=== PATIENT | male | born 1985 | race Caucasian/White ===

== ENCOUNTER 2018-01-13 21:44 | Inpatient (IN) ==
[2018-01-13] MEDS ORDERED: Sod Chloride 0.9% Inj 1,000 ML IV.SIG ONE (23:36)
[2018-01-13] MEDS ORDERED: Piperacil/Tazo 3.375 GM Premix 50 ML IV.SIG ONE (23:36)
[2018-01-13] MEDS ORDERED: Vancomycin Inj 1 GM/200 ML PIGGYBACK IV.SIG ONE (23:36)
[2018-01-14 00:12] LABS: Baso # (Auto) 0.1 th/mm3 (0.0-0.2); Baso % (Auto) 0.7 % (0.0-2.0); Eos # (Auto) 0.1 th/mm3 (0.0-0.4); Eos % (Auto) 0.5 % (0.0-4.0); Hematocrit 39.5 % (39.0-51.0); Hemoglobin 13.9 gm/dL (13.0-17.0); Lymph % (Auto) 20.3 % (9.0-44.0); Mean Corpuscular HGB Conc 35.3 % (32.0-36.0); Mean Corpuscular Hemoglobin 31.1 pg (27.0-34.0); Mean Corpuscular Volume 88.3 fL (80.0-100.0); Mean Platelet Volume 7.4 fL (7.0-11.0); Mono % (Auto) 6.8 % (0.0-8.0); Neut # (Auto) 10.6 th/mm3 (1.8-7.7); Neut % (Auto) 71.7 % (16.0-70.0); Platelet Count 234 th/mm3 (150-450); Red Blood Count 4.47 mil/mm3 (4.50-5.90); Red Cell Distribution Width 13.6 % (11.6-17.2); White Blood Count 14.8 th/mm3 (4.0-11.0)
--- NOTE | 2018-01-14 00:13 | XR ---
EXAM DATE: 01/14/2018 12:08 AM EDT AGE/SEX: 32 years / Male INDICATIONS: Fever. CLINICAL DATA: This is the patient's initial encounter. Patient reports that signs and symptoms have been present for 2 days and indicates a pain score of 0/10. MEDICAL/SURGICAL HISTORY: None. None. COMPARISON: No prior exams available for comparison. FINDINGS: A single AP view of the chest demonstrates the lungs to be symmetrically aerated without evidence of mass, infiltrate or effusion. The cardiomediastinal contours are unremarkable. Osseous structures a re intact. CONCLUSION: Negative examination. Electronically signed by: Guy Elizalde MD 01/14/2018 12:11 AM EDT
[2018-01-14 00:24] LABS: Alanine Aminotransferase 51 U/L (12-78); Albumin 3.6 g/dL (3.4-5.0); Anion Gap 7 meq/L (5-15); Aspartate Aminotransferase 36 U/L (15-37); Blood Urea Nitrogen 14 mg/dL (7-18); Calcium 8.6 mg/dL (8.5-10.1); Carbon Dioxide 25.8 meq/L (21.0-32.0); Chloride 103 meq/L (98-107); Glomerular Filtration Rate 76 mL/min (>89); Glucose,Random 87 mg/dL (74-106); Lipase 63 U/L (73-393); Magnesium 2.1 mg/dL (1.5-2.5); Potassium 4.1 meq/L (3.5-5.1); Sodium 136 meq/L (136-145)
[2018-01-14 00:27] LABS: Alkaline Phosphatase 74 U/L (45-117); Total Protein 7.6 g/dL (6.4-8.2)
--- NOTE | 2018-01-14 00:36 | ED ---
HPI General Chief complaint: Skin/Abscess/Foreign Body Stated complaint: Infection/packing Time Seen by Provider: 01/13/18 23:17 Source: patient Limitations: no limitations History of Present Illness HPI narrative: The patient is a 32 year old male who presents to the [facility] emergency department with a history of reportedly having an insect bite on his right posterior calf that he first noticed 6 days ago. He reports that he began to get red and swollen, painful, and warm, therefore he came to the emergency department for evaluation and treatment. The patient was diagnosed with cellulitis. The patient was treated with Bactrim and Keflex. The patient reports that after starting the antibiotic he then began to have an area that seemed to be coming to ahead. He came to the emergency department last night and had incision and drainage done with packing provided. He was continued on antibiotic as an outpatient, however he was given a dose of vancomycin IV while in the emergency department. The patient reports that since then the area of swelling has greatly increased. He reports that he has redness going up the back of his leg to the posterior thigh. He denies having any groin pain or swelling. He denies having any known fevers or chills. The patient reports having a prior history of cellulitis, however he denies any history of MRSA. He denies any recent IV drug use. He reports that he last used IV drugs years ago. He does report having a history of hepatitis C that he has not been treated for. On review of systems otherwise, the patient denies having any cough, congestion, neck pain, chest pain, shortness of breath, abdominal pain, vomiting, diarrhea, urinary symptoms, or neurologic symptoms. Related Data Previous Rx's Medication Instructions Recorded cephalexin [Keflex] 500 mg PO Q6H 10 Days #40 cap 01/11/18 ibuprofen 800 mg PO TID PRN #21 tab 01/11/18 mupirocin 1 applic TOPICAL BID #15 g 01/11/18 sulfamethoxazole-trimethoprim 1 tab PO Q12H #20 tab 01/11/18 [Bactrim DS] Allergies Allergy/AdvReac Type Severity Reaction Status Date / Time No Known Allergies Allergy Unverified 01/11/18 18:10 Review of Systems ROS: all other systems reviewed are negative (Except for that which is mentioned in the HPI.) Constitutional Denies fever(s) Eyes Denies change in vision ENT Denies headache(s) and Denies nasal congestion Cardiovascular Denies chest pain Respiratory Denies dyspnea Gastrointestinal Denies abdominal pain Genitourinary Denies difficulty urinating Musculoskeletal Denies myalgias Integumentary/Breasts Reports rash Neurologic Denies headache(s) Psychiatric Denies depression Endocrine Denies polyuria Hematologic/Lymphatic Denies easy bruising [facility] Medical History Medical History Hepatitis C (Acute) Patient denies medical problems (Acute) Surgical History Surgical History No history of previous surgery (Acute) Social History Social History Substance History: No History of Abuse Second Hand Smoke Exposure: Yes Smoking Status: Never smoker Tobacco Type: Cigarettes Packs Per Day: 1 Cigarettes Per Day: 20.0 How Often Do You Have a Drink Containing Alcohol: Monthly or less Recent Travel in [facility] within the Last 8 Weeks: No Recent Out of Country Travel within the Last 8 Weeks: No Immunization History Tetanus Immunization: Unsure Exam Const General: cooperative, no acute distress and well developed Nutritional Appearance: well nourished Orientation: alert, awake and oriented x3 HENMT Head: normocephalic and atraumatic Nose: no nasal discharge and no epistaxis Mouth: moist mucous membranes Eyes Sclera: normal sclerae Pupils: PERRL Neck Neck: no meningeal signs, trachea midline and no JVD Resp Effort & Inspection: no use of accessory muscles Auscultation: clear to auscultation bilaterally Cardio Rate: regular rate Rhythm: regular rhythm Heart Sounds: no murmurs GI Inspection: non-distended Palpation: soft, no hepatosplenomegaly and nontender Auscultation: normal bowel sounds Back/Spine/Pelvis Back: no CVA tenderness Cervical Spine: No cervical spinal tenderness Thoracic/Lumbar Spine: No thoracic spinal tenderness and No lumbar spinal tenderness Skin General: dry skin (warm) Neuro General: alert, awake and oriented x3 Cranial Nerves: other (No facial asymmetry) Speech: speech normal Motor: no movement abnormalities noted Extrem General: normal to inspection (Except in the area of interest, the right lower extremity.), no clubbing, no cyanosis and edema Laterality: on the right Right lower extremity: abnormal to inspection (The patient on examination of the right lower extremity is noted to have calf redness with a central area of abscess that is been lanced and packed. The patient's area of redness covers the entire lower right leg and part of the ankle as well as has spread to the upper distal aspect of the posterior right thigh. No inguinal lymphadenopathy associated with this.) Psych Mood: congruent mood Affect: normal affect Judgment: judgment good Course Consultations Consultation #1: The patient's case including history, pertinent physical examination findings, and laboratory studies were discussed with Dr. Taveras. It was agreed that the patient would be admitted to the hospitalist service. Initial Documented Vital Signs Temperature 98.7 F 01/13/18 21:49 Pulse Rate 93 H 01/13/18 21:49 Respiratory Rate 20 01/13/18 21:49 Blood Pressure 138/65 01/13/18 21:49 Pulse Oximetry 100 01/13/18 21:49 Last Documented Vital Signs Temperature 98.7 F 01/13/18 21:49 Pulse Rate 93 H 01/13/18 21:49 Respiratory Rate 20 01/13/18 21:49 Blood Pressure 138/65 01/13/18 21:49 Pulse Oximetry 98 01/13/18 21:51 Medical Decision Making MDM Narrative Medical decision making narrative: During the course of the patient's emergency department visit, the patient's history, examination, and differential diagnosis were reviewed with the patient. The patient was placed on a watch commander with oximetry and frequent blood pressure monitoring. The patient had IV access obtained and blood work sent for analysis. A diagnostic evaluation was started regarding this patient's cellulitis and abscess. Blood cultures 2 were ordered, lactic acid was sent for analysis. The patient was initially provided normal saline 1 L IV fluid bolus, Zosyn 3.375 g IV, vancomycin 1 g IV. Laboratory studies are remarkable for a white count of 14.8, platelets 234, neutrophils 71.7, hemoglobin 13.9, sedimentation rate is elevated at 42, chemistry is remarkable for a total bilirubin of 1.5, lipase 63, magnesium 2.1, lactic acid is normal at 0.6, C-reactive protein is elevated at 12.2. Chest x- ray shows no acute abnormality. The patient will be admitted to the hospital for failure of outpatient management of cellulitis with abscess. The patient's results were discussed with the patient, including the plan of care. I explained that further testing and/ or monitoring is indicated based on the patient's history, examination, and/ or laboratory findings. Therefore, I recommended admission for additional evaluation. The patient expressed understanding and was agreeable with this plan. The patient was admitted to the hospital in guarded condition and sent to a bed under the care of [facility] service. Differential Diagnosis Differential Diagnosis: Failure of outpatient management of cellulitis with abscess, versus bacteremia with sepsis Medical Records Medical records reviewed: Yes I reviewed the patient's medical records. Lab Data Lab results reviewed: Yes I reviewed the patient's lab results. Result diagrams: 01/14/18 00:00 01/14/18 00:00 Lab Results 01/14/18 01/14/18 01/14/18 Range/Units 00:00 00:00 00:00 WBC 14.8 H (4.0-11.0) th/mm3 RBC 4.47 L (4.50-5.90) mil/mm3 Hgb 13.9 (13.0-17.0) gm/dL Hct 39.5 (39.0-51.0) % MCV 88.3 (80.0-100.0) fL MCH 31.1 (27.0-34.0) pg MCHC 35.3 (32.0-36.0) % RDW 13.6 (11.6-17.2) % Plt Count 234 (150-450) th/mm3 MPV 7.4 (7.0-11.0) fL Neut % (Auto) 71.7 H (16.0-70.0) % Lymph % (Auto) 20.3 (9.0-44.0) % [place] % (Auto) 6.8 (0.0-8.0) % Eos % (Auto) 0.5 (0.0-4.0) % Baso % (Auto) 0.7 (0.0-2.0) % Neut # (Auto) 10.6 H (1.8-7.7) th/mm3 Lymph # (Auto) 3.0 (1.0-4.8) th/mm3 [place] # (Auto) 1.0 H (0.0-0.9) th/mm3 Eos # (Auto) 0.1 (0.0-0.4) th/mm3 Baso # (Auto) 0.1 (0.0-0.2) th/mm3 WBC Differential . Differential Comment Auto diff final ESR (0-15) mm/hr Sodium 136 (136-145) meq/L Potassium 4.1 (3.5-5.1) meq/L Chloride 103 (98-107) meq/L Carbon Dioxide 25.8 (21.0-32.0) meq/L Anion Gap 7 (5-15) meq/L BUN 14 (7-18) mg/dL Creatinine 1.11 (0.60-1.30) mg/dL Estimated GFR 76 L (>89) mL/min Random Glucose 87 (74-106) mg/dL Lactic Acid 0.6 (0.4-2.0) mmol/L Calcium 8.6 (8.5-10.1) mg/dL Magnesium 2.1 (1.5-2.5) mg/dL Total Bilirubin 1.5 H (0.2-1.0) mg/dL AST 36 (15-37) U/L ALT 51 (12-78) U/L Alkaline Phosphatase 74 (45-117) U/L C-Reactive Protein 12.20 H (0.00-0.30) mg/dL Total Protein 7.6 (6.4-8.2) g/dL Albumin 3.6 (3.4-5.0) g/dL Lipase 63 L (73-393) U/L 01/14/18 Range/Units 00:00 WBC (4.0-11.0) th/mm3 RBC (4.50-5.90) mil/mm3 Hgb (13.0-17.0) gm/dL Hct (39.0-51.0) % MCV (80.0-100.0) fL MCH (27.0-34.0) pg MCHC (32.0-36.0) % RDW (11.6-17.2) % Plt Count (150-450) th/mm3 MPV (7.0-11.0) fL Neut % (Auto) (16.0-70.0) % Lymph % (Auto) (9.0-44.0) % [place] % (Auto) (0.0-8.0) % Eos % (Auto) (0.0-4.0) % Baso % (Auto) (0.0-2.0) % Neut # (Auto) (1.8-7.7) th/mm3 Lymph # (Auto) (1.0-4.8) th/mm3 [place] # (Auto) (0.0-0.9) th/mm3 Eos # (Auto) (0.0-0.4) th/mm3 Baso # (Auto) (0.0-0.2) th/mm3 WBC Differential Differential Comment ESR 42 H (0-15) mm/hr Sodium (136-145) meq/L Potassium (3.5-5.1) meq/L Chloride (98-107) meq/L Carbon Dioxide (21.0-32.0) meq/L Anion Gap (5-15) meq/L BUN (7-18) mg/dL Creatinine (0.60-1.30) mg/dL Estimated GFR (>89) mL/min Random Glucose (74-106) mg/dL Lactic Acid (0.4-2.0) mmol/L Calcium (8.5-10.1) mg/dL Magnesium (1.5-2.5) mg/dL Total Bilirubin (0.2-1.0) mg/dL AST (15-37) U/L ALT (12-78) U/L Alkaline Phosphatase (45-117) U/L C-Reactive Protein (0.00-0.30) mg/dL Total Protein (6.4-8.2) g/dL Albumin (3.4-5.0) g/dL Lipase (73-393) U/L Imaging Data Radiologist's impression: Chest X-Ray 01/13/18 23:36 CONCLUSION: Negative examination. ECG Data Attestation: I personally reviewed and interpreted this ECG as follows: Interpretation: An EKG was done on arrival that shows a sinus rhythm heart QRS duration is 90 ms, QTC [address] segment elevation. T waves are inverted in V1. Discharge Plan Discharge Disposition Patient Disposition: 30 Still Patient Discharge Details Diagnosis: Cellulitis, Failure of outpatient treatment, Abscess, SIRS (systemic inflammatory response syndrome) Physicians Team ED Provider: Isabella Jackson Primary Care Provider: Primary Care Brittany Larson Attending Provider: Francia Taveras Status ED Status: Admitted Patient
[2018-01-14] MEDS ORDERED: Vancomycin Inj 1,000 MG in Sodium Chlor 0.9% Inj 250 ML IV.SIG ONE (01:00)
[2018-01-14] MEDS ORDERED: Bisacodyl 10 MG Supp RECTAL PRN (03:06)
[2018-01-14] MEDS ORDERED: Acetaminophen 325 MG Tablet PO PRN (03:06)
[2018-01-14] MEDS ORDERED: Vancomycin Consult Pharmacy 1 EACH OTHER SCH (04:00)
[2018-01-14] MEDS: Sod Chloride 0.9% Inj 1,000 ML IV.CONT SCH ×3 (04:22→22:10)
[2018-01-14] MEDS ORDERED: Vancomycin Inj 750 MG in Sodium Chlor 0.9% Inj 250 ML IV.SIG ONE (05:00)
[2018-01-14] MEDS ORDERED: Piperacil/Tazo 3.375 GM Premix 50 ML IV.SIG SCH (07:00)
[2018-01-14] MEDS: Senna/Docusate Sodium 8.6/50 MG Tablet PO SCH ×2 (08:20→20:12)
--- NOTE | 2018-01-14 13:03 | P.HP ---
[facility] Physician: No Primary Care Physician Chief Complaint: Increasing redness and swelling of the right lower extremity posterior calf History of Present Illness: Patient is a 32-year-old male with no significant past medical history who presented to the ER come early this morning with increasing redness and swelling of the right lower extremity posterior cough. About 1 week prior to admission patient thinks that he was probably bitten by an insect on the right posterior calf. He states that subsequently the next day developed a bump associated with severe itching this gradually increased in size and erythema. He finally came to the emergency room on January 12Friday and he was discharged on p.o. antibiotics of Bactrim and cephalexin, ibuprofen and mupirocin ointment.. Patient noted no improvement. Came back to ER the next day because of increasing redness and this time, I and D was done by the ER physician - drained some pus and a drain placed. On review of records unfortunately there was no specimen sent for Gram stain or culture on computer. He was given a one-time dose of IV vancomycin. Patient was instructed to continue taking the Bactrim. All throughout course patient denies any fever or chills. Last evening with rapidly increasing redness and swelling patient getting worried that prompted patient to come here to the ER and was admitted for further evaluation and management. Patient denies any previous history of MRSA or wound infection. states history of reactive hypoglycemia- when he gets to much exercise Inpatient Certification: I certify that the inpatient services were ordered in accordance with Medicare regulations governing the order. This includes certification that hospital inpatient services are reasonable and necessary and in the case of services not specified as inpatient-only under 42 CFR 419.22(n), that they are appropriately provided as inpatient services in accordance to with the 2-midnight benchmark under 43 CFR 412.3(e) Estimated Total Length of Stay (Days): 3 Plans for Post Hospital Care: Home Review of Systems All other systems reviewed negative except as stated in HPI PMFSH - History History Provided By: Patient - Medical History Medical History: Medical History (Last Reviewed 01/14/18 @ 13:13 by Lianne Lorenz RN) Hepatitis C Patient denies medical problems - Surgical History Surgical History: Surgical History (Last Reviewed 01/14/18 @ 13:13 by Lianne Lorenz RN) No history of previous surgery - Tobacco History Second Hand Smoke Exposure: Yes Smoking Status: Current every day smoker Tobacco Type: Cigarettes Packs Per Day: 1 Cigarettes Per Day: 20.0 - Alcohol History How Often Do You Have a Drink Containing Alcohol: Monthly or less - Substance Use History Substance History: Active Abuse (occasionally uses marijuana, denies IV drug use ) - Travel History Recent Travel in the [place] Within the Last 8 Weeks: No Recent Travel Out of the Country Within the Last 8 Weeks: No - Immunization History Tetanus Immunization: Unsure Medications and Allergies Active Medications: Active Medications Acetaminophen (Tylenol) 650 mg PO Q4H PRN PRN Reason: Temp > 100.4 Al Hydroxide/Mg Hydroxide (Milk Of Magnesia Liq) 30 ml PO Q12H PRN PRN Reason: Mild Constipation Bisacodyl (Dulcolax Supp) 10 mg RECTAL DAILY PRN PRN Reason: SEVERE CONSITIPATION Sodium Chloride (Ns Inj) 1,000 mls @ 125 mls/hr IV.CONT .Q8H [facility] Last Admin: 01/14/18 04:22 Dose: 125 mls/hr Pharmacy Profile Note (Vancomycin Consult Pharmacy) 0 mls @ 0 mls/hr OTHER UNSCH [facility] Piperacillin/Tazobactam/Dextrose (Zosyn 3.375 Gm Premix) 50 mls @ 100 mls/hr IV.SIG Q6H [facility] Last Infusion: 01/14/18 08:50 Dose: Infused Vancomycin HCl 1,500 mg/ (Sodium Chloride) 515 mls @ 250 mls/hr IV.SIG Q12H [facility] Lactulose (Lactulose Liq) 30 ml PO DAILY PRN PRN Reason: SEVERE CONSITIPATION Miscellaneous Information ([facility] Ordered Lab Info) 0 each OTHER ONCE ONE Stop: 01/15/18 19:46 Ondansetron HCl (Zofran Inj) 4 mg IV.PUSH Q6H PRN PRN Reason: NAUSEA OR VOMITING Senna/Docusate Sodium (Ifrah-Colace) 1 tab PO BID [facility] Last Admin: 01/14/18 08:20 Dose: Not Given Sennosides (Senokot) 17.2 mg PO Q12H PRN PRN Reason: Moderate Constipation Temazepam (Restoril) 15 mg PO HS PRN PRN Reason: INSOMNIA Allergies Allergy/AdvReac Type Severity Reaction Status Date / Time No Known Allergies Allergy Verified 01/14/18 13:13 Exam Vital signs: Vital Signs 01/13/18 21:49 01/13/18 21:51 01/13/18 23:36 Temperature 98.7 F Pulse Rate 93 H Respiratory Rate 20 Blood Pressure 138/65 Pulse Oximetry 100 98 100 01/14/18 01:51 01/14/18 03:06 01/14/18 08:30 Temperature Pulse Rate 74 74 81 Respiratory Rate 16 14 Blood Pressure 107/61 105/57 L Pulse Oximetry 97 Intake & Output 01/13/18 01/14/18 01/14/18 18:59 06:59 18:59 Intake Total 50 / 50 Balance 50 / 50 Weight 97.522 kg Intake: IV 50 / 50 Zosyn 3.375 GM Premix 50 ML @ 50 / 50 100 mls/hr IV.SIG Q6H [facility] Rx#: [id number] Narrative: Patient is awake alert oriented 3 not in any form of distress Skin with multiple tattoos Anicteric sclerae, pink palpebral conjunctivae Moist oral mucosa Neck supple no rigidity Chest lungs clear breath sounds no rales no wheezes Regular rhythm no murmur Abdomen flabby soft nontender with good bowel sounds Extremities. Right lower extremity with extensive swelling and erythema of the posterior cuff up to the popliteal area. There is a open wound that was drained from by ER from yesterday with drain in place. With surrounding induration and tenderness on palpation marked erythema now draining some light yellowish fluid non- foul Good peripheral pulses Motor moves all extremities equally cranial nerves grossly intact grossly no sensory deficit gait steady Results - Labs CBC & Chem 7: 01/14/18 00:00 01/14/18 00:00 Labs: Laboratory Results - last 24 hr 01/14/18 01/14/18 01/14/18 00:00 00:00 00:00 WBC 14.8 H RBC 4.47 L Hgb 13.9 Hct 39.5 MCV 88.3 MCH 31.1 MCHC 35.3 RDW 13.6 Plt Count 234 MPV 7.4 Neut % (Auto) 71.7 H Lymph % (Auto) 20.3 [place] % (Auto) 6.8 Eos % (Auto) 0.5 Baso % (Auto) 0.7 Neut # (Auto) 10.6 H Lymph # (Auto) 3.0 [place] # (Auto) 1.0 H Eos # (Auto) 0.1 Baso # (Auto) 0.1 WBC Differential . Differential Comment Auto diff final ESR Sodium 136 Potassium 4.1 Chloride 103 Carbon Dioxide 25.8 Anion Gap 7 BUN 14 Creatinine 1.11 Estimated GFR 76 L Random Glucose 87 Lactic Acid 0.6 Calcium 8.6 Magnesium 2.1 Total Bilirubin 1.5 H AST 36 ALT 51 Alkaline Phosphatase 74 C-Reactive Protein 12.20 H Total Protein 7.6 Albumin 3.6 Lipase 63 L 01/14/18 00:00 WBC RBC Hgb Hct MCV MCH MCHC RDW Plt Count MPV Neut % (Auto) Lymph % (Auto) [place] % (Auto) Eos % (Auto) Baso % (Auto) Neut # (Auto) Lymph # (Auto) [place] # (Auto) Eos # (Auto) Baso # (Auto) WBC Differential Differential Comment ESR 42 H Sodium Potassium Chloride Carbon Dioxide Anion Gap BUN Creatinine Estimated GFR Random Glucose Lactic Acid Calcium Magnesium Total Bilirubin AST ALT Alkaline Phosphatase C-Reactive Protein Total Protein Albumin Lipase - Imaging Impressions Chest X-Ray 01/13/18 23:36 CONCLUSION: Negative examination. Caprini VTE Risk Assessment Caprini VTE Risk Assessment: No/Low Risk (score <= 1) Caprini Risk Assessment Model: Point Value = 1 Point Value = 2 Point Value = 3 Point Value = 5 Age 41-60 Minor surgery BMI > 25 kg/m2 Swollen legs Varicose veins or History of unexplained or recurrent spontaneous Oral contraceptives or hormone replacement Sepsis (< 1 month) Serious lung disease, including pneumonia (< 1 month) Abnormal pulmonary function Acute myocardial infarction Congestive heart failure (< 1 month) History of inflammatory bowel disease Medical patient at bed rest Age 61-74 Arthroscopic surgery Major open surgery (> 45 min) Laparoscopic surgery (> 45 min) Malignancy Confined to bed (> 72 hours) Immobilizing plaster cast Central venous access Age >= 75 History of VTE Family history of VTE Factor V Leiden Prothrombin [id number] Lupus anticoagulant Anticardiolipin antibodies Elevated serum homocysteine Heparin-induced thrombocytopenia Other congenital or acquired thrombophilia Stroke (< 1 month) Elective arthroplasty Hip, pelvis, or leg fracture Acute spinal cord injury (< 1 month) Prophylaxis Regimen: Total Risk Factor Score Risk Level Prophylaxis Regimen 0-1 Low Early ambulation 2 Moderate Order ONE of the following: *Sequential Compression Device (SCD) *Heparin 5000 units SQ BID 3-4 Higher Order ONE of the following medications: *Heparin 5000 units SQ TID *Enoxaparin/Lovenox 40 mg SQ daily (WT < 150 kg, CrCl > 30 mL/min) *Enoxaparin/Lovenox 30 mg SQ daily (WT < 150 kg, CrCl > 10-29 mL/min) *Enoxaparin/Lovenox 30 mg SQ BID (WT < 150 kg, CrCl > 30 mL/min) AND/OR *Sequential Compression Device (SCD) 5 or more Highest Order ONE of the following medications: *Heparin 5000 units SQ TID (Preferred with Epidurals) *Enoxaparin/Lovenox 40 mg SQ daily (WT < 150 kg, CrCl > 30 mL/min) *Enoxaparin/Lovenox 30 mg SQ daily (WT < 150 kg, CrCl > 10-29 mL/min) *Enoxaparin/Lovenox 30 mg SQ BID (WT < 150 kg, CrCl > 30 mL/min) AND *Sequential Compression Device (SCD) Assessment and Plan - Plan 32-year-old male presenting with Right lower extremity calf abscess with marked surrounding cellulitis S/P I and D 01/12- ER Continue on IV Vancomycin. Unfortunately there was no specimen in lab sent from the ER visit yesterday were when they did I and D. We will get an imaging study- ultrasound to rule out any deeper collection / involvement that may need to be drained more Will get general surgery consult if needs further I and D Wound care team consult. As needed p.o. pain meds FF blood cultures. send specimen for gram stain, C and S History of hepatitis C. Patient thinks that he might gotten this from tattoos procedure History of reactive hypoglycemia. This when he gets too much exercise. History of seizure this was one time in 2015. No further episodes. This was related to drug use.
--- NOTE | 2018-01-14 15:15 | US ---
EXAM DATE: 01/14/2018 2:34 PM EDT AGE/SEX: 32 years / Male INDICATIONS: Right leg redness, swelling, and pain. CLINICAL DATA: This is the patient's initial encounter. Patient reports that signs and symptoms have been present for 1 week and indicates a pain score of 9/10. MEDICAL/SURGICAL HISTORY: Hepatitis C. Possible insect bite. . Incision and drainage. COMPARISON: No prior exams available for comparison. FINDINGS: Soft tissue induration in around the packing without defined fluid collection. CONCLUSION: 1. Negative for isolated fluid collection. Electronically signed by: Milton Clarke MD 01/14/2018 3:14 PM EDT
[2018-01-14] MEDS: Vancomycin Inj 1,500 MG in Sodium Chlor 0.9% Inj 500 ML IV.SIG SCH (20:10)
[2018-01-14] MEDS: Temazepam 15 MG Capsule PO PRN (22:11)
--- NOTE | 2018-01-14 22:15 | ECG ---
Date Performed: 01/14/2018 Time Performed: 01:48:39 PTAGE: 32 years EKG: Sinus rhythm NORMAL ECG NO PREVIOUS TRACING DOCTOR: Jamel Mueller Interpretating Date/Time 01/14/2018 22:11:32
[2018-01-15] MEDS: Sod Chloride 0.9% Inj 1,000 ML IV.CONT SCH ×3 (05:01→20:35)
[2018-01-15] MEDS: Vancomycin Inj 1,500 MG in Sodium Chlor 0.9% Inj 500 ML IV.SIG SCH ×2 (09:03→20:34)
[2018-01-15] MEDS: Senna/Docusate Sodium 8.6/50 MG Tablet PO SCH ×2 (09:12→20:36)
--- NOTE | 2018-01-15 10:10 | P.PN ---
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 Physical Exam Vital signs: Vital Signs 01/14/18 13:11 01/14/18 19:54 01/14/18 19:57 Temperature 97.8 F 98.9 F Pulse Rate 77 83 83 Respiratory Rate 18 20 Blood Pressure 112/57 L 114/60 Pulse Oximetry 96 99 01/14/18 21:00 01/15/18 00:00 01/15/18 00:04 Temperature 98 F Pulse Rate 80 76 Respiratory Rate 20 16 Blood Pressure 108/61 Pulse Oximetry 96 01/15/18 04:00 01/15/18 08:00 Temperature 98 F 98.1 F Pulse Rate 80 72 Respiratory Rate 18 16 Blood Pressure 101/61 106/57 L Pulse Oximetry 96 96 Intake & Output 01/14/18 01/15/18 01/15/18 18:59 06:59 18:59 Intake Total 1050 / 1050 2045 / 2045 Output Total 1500 / 1500 Balance 1050 / 1050 545 / 545 Weight 97.9 kg Intake: IV 1050 / 1050 515 / 515 NS Inj 1,000 ML @ 125 mls/hr IV 1000 / 1000 .CONT .Q8H YARELY Rx#:[id number] Zosyn 3.375 GM Premix 50 ML @ 50 / 50 100 mls/hr IV.SIG Q6H YARELY Rx#: [id number] Vancomycin Inj 1,500 MG In NS 515 / 515 Inj 500 ML @ 250 mls/hr IV.SIG Q12H YARELY Rx#:[id number] Oral 1530 / 1530 Output: Urine 1500 / 1500 Other: # Voids 2 Date of Last Bowel Movement 01/14/18 # Bowel Movements 1 Weight On Admission 97.9 kg Narrative: awake and alert lungs clear abdomen soft right LE- + swelling and marked extensive erythema of the posterior aspect of the leg open wound pasterior calf area with packing in place tender to touch good epripheral pulses Results - Labs CBC & Chem 7: 01/14/18 00:00 01/14/18 00:00 Microbiology 01/14/18 14:00 Wound - Leg Gram Stain - Final - Imaging Impressions Lower Extremity Ultrasound 01/14/18 00:00 CONCLUSION: 1. Negative for isolated fluid collection. Assessment and Plan - Plan 32-year-old male presenting with Right lower extremity calf abscess S/P I and D /packing in place- 01/12 Severe right LE cellulitis US shows no fluid collection 01/14 to drain Continue on IV Vancomycin. Unfortunately there was no specimen in lab sent from the ER visit yesterday were when they did I and D. Wound care team consult. As needed p.o. pain meds FF blood cultures- negative so far Fluid culture + for rare gram positive cocci ID consult for recommendation Increase Percoet to 7.5 q 4 prn for pain Repeat CBC History of hepatitis C. Patient thinks that he might gotten this from tattoos procedure History of reactive hypoglycemia. This when he gets too much exercise. History of seizure this was one time in 2014. No further episodes. This was related to drug use.
[2018-01-15] MEDS: oxyCODONE/Acetaminophen 10/325 Tablet PO PRN ×3 (11:05→22:48)
--- NOTE | 2018-01-15 15:33 | MB ---
cc: Ilan Man MD DATE: 01/15/2018 REQUESTING PHYSICIAN: Dr. Salima Bueno. REASON FOR CONSULTATION: Marked severe cellulitis of the right leg. Failed outpatient antibiotic. Antibiotic recommendations. HISTORY OF PRESENT ILLNESS: This is a 32-year-old white male, who presented to the emergency department after he developed rapidly progressing redness of the right posterior calf into the right tibia. The patient was evaluated in the emergency department for that problem on 01/12/2018. He was put on Bactrim as well as Keflex and discharged. He states that the leg became rapidly erythematous and swollen and he squeezed it and pus exuded from the posterior calf region. He was reevaluated in the emergency department on 01/14/2018 and he was admitted and an incision and drainage procedure was performed and a culture was taken. The culture has growth of MRSA. He was put on vancomycin and he continues to receive vancomycin. His white count is elevated at 14.8. The patient notes that he had a bug bite, which initiated this infection. This had occurred 5 days prior to him being seen in the emergency department on 01/13/2018. He denies chills or fever. He notes, however, he gets occasional sweats. Blood cultures taken on 01/14/2018 has no growth at 1 day. He has no other complaints. PAST MEDICAL HISTORY: Hepatitis C. ALLERGIES: NO KNOWN DRUG ALLERGIES. MEDICATIONS: 1. Vancomycin. 2. Oxycodone p.r.n. SOCIAL HISTORY: The patient smokes a pack of cigarettes a day. Occasional alcohol. No history of IV drug use. He has a history of substance abuse 10 years ago, but now no longer uses illicit drugs. 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 FAMILY HISTORY: Noncontributory. REVIEW OF SYSTEMS: All systems have been reviewed and are negative, except for pain in the right calf. PHYSICAL EXAMINATION: GENERAL: This is a well-developed male who is in no acute distress. He is awake, alert and oriented. VITAL SIGNS: Temperature is 98 degrees, blood pressure 107/59, respirations 16, heart rate 66. HEENT: The head is atraumatic. Extraocular movements grossly intact. No icterus. No conjunctival erythema. Oropharynx moist mucosa without lesions. NECK: Supple, no adenopathy. LUNGS: Clear breath sounds. HEART: Regular S1 and S2. No murmurs. No rubs. No gallops. ABDOMEN: Bowel sounds present. Soft, no tenderness. RECTAL: Not performed. EXTREMITIES: The right leg is swollen throughout. There is erythema at the right leg below the knee circumferentially. There is an open wound, which has a dressing in place. No visible blisters. The other extremities have no clubbing, cyanosis or edema. SKIN: No diffuse rash. NEUROLOGIC: No gross focal finding. PSYCHIATRIC: The patient is calm and cooperative. LABORATORY DATA: WBC 14.8, platelets 234, hemoglobin 13.9. C-reactive protein 12.2, sodium 136, creatinine 1.1, BUN 14, estimated GFR 76. Liver function tests normal. IMPRESSION: Cellulitis of the right lower extremity due to Methicillin resistant Staphylococcus aureus. Severe in nature. Failed outpatient antibiotic therapy with p.o. antibiotics. RECOMMENDATIONS: 1. Continue vancomycin. 2. Monitor the sensitivity of the MRSA. 3. Additional antibiotic recommendations will be given once further information becomes available and depending on response to antibiotic treatment. Ilan Man MD FFJeanie/KD , 02:47 PM , 02:59 PM
--- NOTE | 2018-01-15 16:03 | P.PNWCN ---
Wound Care Nurse Consult Description: Consult for Wound Management of LE per Dr Taveras Communicated with: Dr Bueno Patient Recommendation: Cleanse right lateral lower leg daily with NS and gauze. Gently pack wound with Iodoform leaving out a tail. Cover with rolled gauze and tape. Additional information: Patient seen on for right lower extremity wound. Wound/Pressure Injury - Wound Right Calf Requested from Provider a Wound Care Consult: Yes (Dr Taveras) Length: 2.2 (cm) Width: 1 (cm) Depth: 1.4 (cm) Wound Bed Appearance: Red, White Wound Bed Appearance: moist Surrounding Tissue Appearance: Edematous, Erythema, Indurated Surrounding Tissue Temperature: Warm Drainage Description: Sanguinous Drainage Amount: Scant Drainage Odor: No Odor Dressing Status: Changed Cleansing Solution: Saline Wound Packing Type: Gauze Packing Strips (Iodoform) Primary Dressing: Gauze Pad Cover Dressing: Gauze Roll/Wrap Tape Type: Transparent Wound Dressing Change Date: 01/15/18
[2018-01-15] MEDS ORDERED: Pharmacy Ordered Lab Info OTHER ONE (19:45)
[2018-01-15] MEDS: Temazepam 15 MG Capsule PO PRN (22:48)
[2018-01-16] MEDS: Sod Chloride 0.9% Inj 1,000 ML IV.CONT SCH ×2 (04:43→13:26)
[2018-01-16] MEDS: oxyCODONE/Acetaminophen 10/325 Tablet PO PRN ×2 (04:58→11:04)
[2018-01-16 05:12] LABS: Baso # (Auto) 0.1 th/mm3 (0.0-0.2); Eos # (Auto) 0.2 th/mm3 (0.0-0.4); Eos % (Auto) 2.4 % (0.0-4.0); Hematocrit 40.3 % (39.0-51.0); Hemoglobin 13.9 gm/dL (13.0-17.0); Lymph # (Auto) 2.4 th/mm3 (1.0-4.8); Lymph % (Auto) 32.9 % (9.0-44.0); Mean Corpuscular HGB Conc 34.6 % (32.0-36.0); Mean Corpuscular Volume 89.7 fL (80.0-100.0); Mean Platelet Volume 7.3 fL (7.0-11.0); Mono # (Auto) 0.4 th/mm3 (0.0-0.9); Mono % (Auto) 5.9 % (0.0-8.0); Neut # (Auto) 4.1 th/mm3 (1.8-7.7); Neut % (Auto) 57.8 % (16.0-70.0); Platelet Count 248 th/mm3 (150-450); Red Blood Count 4.49 mil/mm3 (4.50-5.90); Red Cell Distribution Width 13.4 % (11.6-17.2); White Blood Count 7.2 th/mm3 (4.0-11.0)
[2018-01-16 05:21] LABS: Anion Gap 8 meq/L (5-15); Blood Urea Nitrogen 9 mg/dL (7-18); Calcium 8.6 mg/dL (8.5-10.1); Carbon Dioxide 25.2 meq/L (21.0-32.0); Chloride 108 meq/L (98-107); Glomerular Filtration Rate Greater Than 89 mL/min (>89); Glucose,Random 97 mg/dL (74-106); Sodium 141 meq/L (136-145)
[2018-01-16] MEDS: Vancomycin Inj 1,500 MG in Sodium Chlor 0.9% Inj 500 ML IV.SIG SCH (08:31)
[2018-01-16] MEDS: Senna/Docusate Sodium 8.6/50 MG Tablet PO SCH (08:34)
--- NOTE | 2018-01-16 12:40 | P.PNID ---
Subjective Remarks: Patient feels okay. no complaints. Afebrile. Admitted with Marked severe cellulitis of the right leg. Failed outpatient antibiotic. Antibiotic recommendations. Culture has MRSA. Allergies/Adverse Reactions: Allergies No Known Allergies Allergy (Verified 01/14/18 13:13) Objective Vital Signs 01/15/18 16:00 01/15/18 20:00 01/15/18 23:42 Temperature 98.0 F 97.2 F L 97.2 F L Pulse Rate 64 64 69 Respiratory Rate 16 18 18 Blood Pressure 105/59 L 109/64 103/56 L Pulse Oximetry 97 94 L 98 01/16/18 03:48 01/16/18 04:00 01/16/18 07:46 Temperature 97.5 F L Pulse Rate 76 67 71 Respiratory Rate 18 Blood Pressure 108/59 L Pulse Oximetry 98 01/16/18 08:00 Temperature 97.8 F Pulse Rate 70 Respiratory Rate 18 Blood Pressure 112/61 Pulse Oximetry 98 Intake & Output 01/15/18 01/16/18 01/16/18 18:59 06:59 18:59 Intake Total 1974 / 1974 755 / 755 Output Total 1500 / 1500 600 / 600 Balance 475 / 475 155 / 155 Weight 59.6 kg Intake: IV 1515 / 1515 515 / 515 NS Inj 1,000 ML @ 125 mls/hr IV 1000 / 1000 .CONT .Q8H YARELY Rx#:[id number] Vancomycin Inj 1,500 MG In NS 515 / 515 515 / 515 Inj 500 ML @ 250 mls/hr IV.SIG Q12H YARELY Rx#:[id number] Oral 460 / 460 240 / 240 Output: Urine 1500 / 1500 600 / 600 Other: Date of Last Bowel Movement 01/15/18 # Bowel Movements 0 01/13/18 23:55 Blood - Peripheral Aerobic Blood Culture - Preliminary No growth in 2 days 01/13/18 23:55 Blood - Peripheral Anaerobic Blood Culture - Preliminary No growth in 2 days 01/14/18 00:00 Blood - Peripheral Aerobic Blood Culture - Preliminary No growth in 2 days 01/14/18 00:00 Blood - Peripheral Anaerobic Blood Culture - Preliminary No growth in 2 days 01/14/18 14:00 Wound - Leg Gram Stain - Final 01/14/18 14:00 Wound - Leg Wound Culture - Final S. aureus MRSA Lab - Hematology Results 01/16/18 04:00 WBC 7.2 RBC 4.49 L Hgb 13.9 Hct 40.3 MCV 89.7 MCH 31.0 MCHC 34.6 RDW 13.4 Plt Count 248 MPV 7.3 Neut % (Auto) 57.8 Lymph % (Auto) 32.9 [place] % (Auto) 5.9 Eos % (Auto) 2.4 Baso % (Auto) 1.0 Neut # (Auto) 4.1 Lymph # (Auto) 2.4 [place] # (Auto) 0.4 Eos # (Auto) 0.2 Baso # (Auto) 0.1 WBC Differential . Differential Comment Auto diff final Lab - Chemistry Results 01/16/18 04:00 Sodium 141 Potassium 4.0 Chloride 108 H Carbon Dioxide 25.2 Anion Gap 8 BUN 9 Creatinine 0.75 Estimated GFR Greater than 89 Random Glucose 97 Calcium 8.6 Imaging: ITS Impressions Chest X-Ray 01/13/18 23:36 CONCLUSION: Negative examination. Lower Extremity Ultrasound 01/14/18 00:00 CONCLUSION: 1. Negative for isolated fluid collection. Physical Exam: GENERAL: No acute distress. HEENT: The head is atraumatic. Extraocular movements grossly intact. No icterus. No conjunctival erythema. Oropharynx moist mucosa without lesions. NECK: Supple, no adenopathy. LUNGS: Clear breath sounds. HEART: Regular S1 and S2. No murmurs. No rubs. No gallops. ABDOMEN: Bowel sounds present. Soft, no tenderness. EXTREMITIES: The right leg is less swollen and erythema is decreased. SKIN: No diffuse rash. NEUROLOGIC: No gross focal finding. PSYCHIATRIC: Calm and cooperative. Assessment and Plan - Plan IMPRESSION: Cellulitis of the right lower extremity due to Methicillin resistant Staphylococcus aureus. Severe in nature. Failed outpatient antibiotic therapy with p.o. antibiotics. RECOMMENDATIONS: Okay to discharge on PO Clindamycin 300mg tid x [address] Bueno.
--- NOTE | 2018-01-16 14:02 | P.PN ---
Subjective Interval history: afebrile erythema improved, no induration Physical Exam Vital signs: Vital Signs 01/15/18 16:00 01/15/18 20:00 01/15/18 23:42 Temperature 98.0 F 97.2 F L 97.2 F L Pulse Rate 64 64 69 Respiratory Rate 16 18 18 Blood Pressure 105/59 L 109/64 103/56 L Pulse Oximetry 97 94 L 98 01/16/18 03:48 01/16/18 04:00 01/16/18 07:46 Temperature 97.5 F L Pulse Rate 76 67 71 Respiratory Rate 18 Blood Pressure 108/59 L Pulse Oximetry 98 01/16/18 08:00 Temperature 97.8 F Pulse Rate 70 Respiratory Rate 18 Blood Pressure 112/61 Pulse Oximetry 98 Intake & Output 01/15/18 01/16/18 01/16/18 18:59 06:59 18:59 Intake Total 1974 / 1974 755 / 755 Output Total 1500 / 1500 600 / 600 Balance 475 / 475 155 / 155 Weight 59.6 kg Intake: IV 1515 / 1515 515 / 515 NS Inj 1,000 ML @ 125 mls/hr IV 1000 / 1000 .CONT .Q8H YARELY Rx#:[id number] Vancomycin Inj 1,500 MG In NS 515 / 515 515 / 515 Inj 500 ML @ 250 mls/hr IV.SIG Q12H YARELY Rx#:[id number] Oral 460 / 460 240 / 240 Output: Urine 1500 / 1500 600 / 600 Other: Date of Last Bowel Movement 01/15/18 # Bowel Movements 0 Narrative: awake and alert lungs clear abdomen soft right LE- + swelling and marked extensive erythema of the posterior aspect of the leg- mared decrease in erythema and area open wound pasterior calf area with packing in place tender to touch good epripheral pulses Results - Labs CBC & Chem 7: 01/16/18 04:00 01/16/18 04:00 Laboratory Results - last 24 hr 01/15/18 01/16/18 01/16/18 20:15 04:00 04:00 WBC 7.2 RBC 4.49 L Hgb 13.9 Hct 40.3 MCV 89.7 MCH 31.0 MCHC 34.6 RDW 13.4 Plt Count 248 MPV 7.3 Neut % (Auto) 57.8 Lymph % (Auto) 32.9 [place] % (Auto) 5.9 Eos % (Auto) 2.4 Baso % (Auto) 1.0 Neut # (Auto) 4.1 Lymph # (Auto) 2.4 [place] # (Auto) 0.4 Eos # (Auto) 0.2 Baso # (Auto) 0.1 WBC Differential . Differential Comment Auto diff final Sodium 141 Potassium 4.0 Chloride 108 H Carbon Dioxide 25.2 Anion Gap 8 BUN 9 Creatinine 0.75 Estimated GFR Greater than 89 Random Glucose 97 Calcium 8.6 Vancomycin Trough 8.6 Microbiology 01/13/18 23:55 Blood - Peripheral Aerobic Blood Culture - Preliminary No growth in 2 days 01/13/18 23:55 Blood - Peripheral Anaerobic Blood Culture - Preliminary No growth in 2 days 01/14/18 00:00 Blood - Peripheral Aerobic Blood Culture - Preliminary No growth in 2 days 01/14/18 00:00 Blood - Peripheral Anaerobic Blood Culture - Preliminary No growth in 2 days 01/14/18 14:00 Wound - Leg Gram Stain - Final 01/14/18 14:00 Wound - Leg Wound Culture - Final S. aureus MRSA Assessment and Plan - Plan 32-year-old male presenting with Right lower extremity calf abscess S/P I and D /packing in place- 01/12 Severe right LE cellulitis US shows no fluid collection 01/14 to drain Continue on IV Vancomycin. Unfortunately there was no specimen in lab sent from the ER visit yesterday were when they did I and D. Wound care team consult. As needed p.o. pain meds FF blood cultures- negative so far Fluid culture + s aureus ID consult for recommendation- d/w Dr. Man- [place] on clindamycin 300 mg po q 8 for 7 days Increase Percoet to 7.5 q 4 prn for pain History of hepatitis C. Patient thinks that he might gotten this from tattoos procedure History of reactive hypoglycemia. This when he gets too much exercise. History of seizure this was one time in 2014. No further episodes. This was related to drug use. Dc home today advised on woundcare OP ff up with PCP
[2018-01-16] MEDS ORDERED: Pharmacy Ordered Lab Info OTHER ONE (19:45)
== END 2018-01-16 14:19 | disposition home or self-care (01) ==
LOC: NEPE 21:44 → NEDA 01-14 02:56 → N04 01-14 13:04
PROVIDERS: ADMIT Internal Medicine; ATTEND Internal Medicine